=== PATIENT | male | born 1970 | race Caucasian/White ===

== ENCOUNTER → 2018-05-01 08:20 | Outpatient (CLI) | payer BC, SELFPAY ==
[2018-05-01 10:00] LABS: Alanine Aminotransferase 112 U/L (12-78); Albumin Level 4.2 gm/dL (3.4-5.0); Albumin/Globulin Ratio 1.2 (1.1-1.8); Alkaline Phosphatase 107 U/L (46-116); Anion Gap 16.7 mEq/L (5-15); Aspartate Amino Transferase 43 U/L (15-37); Bilirubin,Total 0.6 mg/dL (0.2-1.0); Blood Urea Nitrogen 23 mg/dL (7-18); Calcium 9.6 mg/dL (8.5-10.1); Carbon Dioxide 25 mmol/L (21.0-32.0); Chloride 103 mmol/L (98-107); Chol/HDL Ratio 7.1 (1-3.5); Cholesterol 263 mg/dL (140-200); Creatinine,Serum 1.12 mg/dL (0.70-1.30); Estimated Glomerular Filt Rate 71 ml/min (>60); GFR (African American) 85 ML/MIN (>60); Globulin 3.4 gm/dl (1.3-3.2); Glucose 138 mg/dL (74-106); HDL Cholesterol 37 mg/dL (27-67); LDL Cholesterol 202 mg/dL (0-130); Potassium 4.7 mmoL/L (3.5-5.1); Sodium 140 mmol/L (136-145); Total Protein,Serum 7.6 gm/dL (6.4-8.2); Triglycerides 118 mg/dL (30-200); VLDL Cholesterol 24 mg/dL (0-40)
[2018-05-01 10:25] LABS: Hemoglobin A1C 5.8 % (0.0-7.0)
== END ==
PROVIDERS: Visit Provider Physician Assistant
DX: R63.1 Polydipsia (principal); Z13.220 Encounter for screening for lipoid disorders
CPT/HCPCS: 36415; 80053; 80061; 83036

== ENCOUNTER → 2018-05-26 07:52 | Outpatient (CLI) | payer BC, SELFPAY ==
--- NOTE | 2018-05-26 07:57 | US_ITS ---
US abdomen limited History:Elevated liver enzymes Ordering Physician:Renee Holman MD Patient Age: 47 years Comparison:None Findings: Pancreas:Poorly demonstrated due to overlying bowel gas. Liver:Generalized increased echogenicity with poor through transmission of sound consistent Hill liver. No focal lesions demonstrated. There is appropriate direction of blood flow within the portal vein Right Kidney:Unremarkable. Normal size and echogenicity. No hydronephrosis Gallbladder:There is mild amount sludge noted. No gallstones, gallbladder wall thickening, pericholecystic fluid, or biliary dilatation. Common bile duct is 4 mm. Impression: 1. Small amount of gallbladder sludge. 2. Fatty liver. 3. Otherwise negative
== END ==
PROVIDERS: PCP Family Medicine; Visit Provider Family Medicine
DX: R79.89 Other specified abnormal findings of blood chemistry (principal)
CPT/HCPCS: 76705

== ENCOUNTER → 2018-11-05 07:19 | Outpatient (CLI) | payer BC, SELFPAY ==
[2018-11-05 10:14] LABS: Alanine Aminotransferase 75 U/L (12-78); Albumin Level 3.9 gm/dL (3.4-5.0); Albumin/Globulin Ratio 1.3 (1.1-1.8); Alkaline Phosphatase 98 U/L (46-116); Anion Gap 15.4 mEq/L (5-15); Aspartate Amino Transferase 32 U/L (15-37); Bilirubin,Total 0.5 mg/dL (0.2-1.0); Blood Urea Nitrogen 18 mg/dL (7-18); Calcium 8.9 mg/dL (8.5-10.1); Carbon Dioxide 24 mmol/L (21.0-32.0); Chloride 105 mmol/L (98-107); Chol/HDL Ratio 5.5 (1-3.5); Cholesterol 175 mg/dL (140-200); Creatinine,Serum 1.17 mg/dL (0.70-1.30); Estimated Glomerular Filt Rate 67 ml/min (>60); GFR (African American) 81 ML/MIN (>60); Glucose 112 mg/dL (74-106); HDL Cholesterol 32 mg/dL (27-67); LDL Cholesterol 108 mg/dL (0-130); Potassium 4.4 mmoL/L (3.5-5.1); Sodium 140 mmol/L (136-145); Total Protein,Serum 6.9 gm/dL (6.4-8.2); Triglycerides 177 mg/dL (30-200); VLDL Cholesterol 35 mg/dL (0-40)
== END ==
PROVIDERS: Visit Provider Physician Assistant
DX: E78.2 Mixed hyperlipidemia (principal)
CPT/HCPCS: 36415; 80053; 80061

== ENCOUNTER → 2019-04-13 10:06 | Outpatient (CLI) | payer BC, SELFPAY ==
--- NOTE | 2019-08-21 16:32 | PC.NURSE ---
1630 dr. lester notified of NEGATIVE COVID-19 TEST RESULTS 1633 PT NOTIFIED OF NEGATIVE COVID-19 TEST RESULTS
== END ==
PROVIDERS: Visit Provider Urology
DX: Z12.5 Encounter for screening for malignant neoplasm of prostate (principal)
CPT/HCPCS: G0103

== ENCOUNTER → 2019-08-20 10:26 | Outpatient (CLI) | payer BC, SELFPAY ==
[2019-08-21 16:45] LABS: Covid-19 Nasal PCR Sendout Lex NOT DETECTED
== END ==
PROVIDERS: Visit Provider Family Medicine
DX: Z03.818 Encounter for observation for suspected exposure to other biological agents ruled out (principal)
CPT/HCPCS: U0003

== ENCOUNTER → 2020-12-12 16:41 | Outpatient (CLI) | payer BC, SELFPAY | PROVIDERS: PCP Physician Assistant; Visit Provider Physician Assistant | DX: G47.33 Obstructive sleep apnea (adult) (pediatric) (principal); R40.0 Somnolence; R06.83 Snoring; G47.00 Insomnia, unspecified; E66.9 Obesity, unspecified; Z68.34 Body mass index [BMI] 34.0-34.9, adult | CPT/HCPCS: G0399 ==

== ENCOUNTER → 2021-05-14 13:00 | Outpatient (CLI) | payer BC, SELFPAY ==
[2021-05-14 14:05] LABS: Basophils # 0.1 K/mm3 (0-0.2); Basophils % 0.8 % (0.1-2.0); Eosinophils # 0.6 K/mm3 (0.0-0.4); Hematocrit 46.8 % (42.0-52.0); Hemoglobin 15.1 g/dL (14.1-18.0); Lymphocytes # 2.7 K/mm3 (0.7-4.5); Lymphocytes % 18.8 % (10-50); Mean Corpuscular HGB Conc 32.4 g/dL (31.8-35.4); Mean Corpuscular Hemoglobin 28.8 pg (27.0-31.2); Mean Corpuscular Volume 88.9 fl (80-94); Mean Platelet Volume 7.9 fl (7.4-10.4); Monocytes % 7.1 % (1.7-9.3); Neutrophils # 9.9 K/mm3 (1.8-7.8); Neutrophils % 69.2 % (37.0-80.0); Platelet Count 473 K/mm3 (142-424); Red Blood Count 5.26 M/mm3 (4.60-6.20); Red Cell Distribution Width 13.2 % (11.5-17.5); White Blood Count 14.4 K/mm3 (4.8-10.8)
== END ==
PROVIDERS: PCP Family Medicine; Visit Provider Family Medicine
DX: U07.1 COVID-19 (principal)
CPT/HCPCS: 36415; 85025; 87275; 87276; C9803; U0003; U0005

== ENCOUNTER → 2021-08-12 14:50 | Outpatient (CLI) | payer BC, SELFPAY ==
[2021-08-12 16:47] LABS: Prostate Specific Ag Screen 1.1 ng/ml (0.0-4.0)
== END ==
PROVIDERS: Visit Provider Urology
DX: Z12.5 Encounter for screening for malignant neoplasm of prostate (principal)
CPT/HCPCS: 36415; G0103

== ENCOUNTER → 2023-02-17 10:23 | Outpatient (POV) | payer BC, SELFPAY | PROVIDERS: Visit Provider Dermatology | DX: Z00.00 Encounter for general adult medical examination without abnormal findings (principal) ==

== ENCOUNTER 2023-06-30 09:46 | Outpatient (POV) | payer BC, SELFPAY | END 2023-06-30 23:59 | disposition home or self-care (01) | LOC: SC 09:47 | PROVIDERS: PCP Family Medicine; Visit Provider Dermatology | DX: Z00.00 Encounter for general adult medical examination without abnormal findings (principal) ==

== ENCOUNTER 2023-12-07 07:16 | Outpatient (CLI) | payer BC, SELFPAY ==
[2023-12-07 08:27] LABS: Albumin Level 3.9 g/dl (3.5-5.0); Chloride 109 mmol/L (98-107); Potassium 3.9 mmoL/L (3.5-5.1); Sodium 140 mmol/L (136-145)
[2023-12-07 08:30] LABS: Alanine Aminotransferase 122 U/L (12-78); Albumin/Globulin Ratio 1.6 (1.1-1.8); Alkaline Phosphatase 99 U/L (38-126); Anion Gap 8.9 mEq/L (5-15); Aspartate Amino Transferase 66 U/L (17-59); Bilirubin,Total 0.5 mg/dl (0.2-1.3); Blood Urea Nitrogen 18 mg/dl (9-20); Carbon Dioxide 26 mmol/L (22.0-30.0); Chol/HDL Ratio 7.7 (1-3.5); Cholesterol 245 mg/dl (140-200); Estimated Glomerular Filt Rate 70 ml/min (>60); GFR (African American) 85 ML/MIN (>60); Globulin 2.5 g/dL (1.3-3.2); Glucose 122 mg/dl (74-100); HDL Cholesterol 32 mg/dl (40-60); Total Protein,Serum 6.4 g/dl (6.3-8.2); Triglycerides 168 mg/dl (30-150); VLDL Cholesterol 34 mg/dL (0-40)
[2023-12-07 08:41] LABS: Direct LDL Cholesterol 177.05 mg/dL (100-129)
[2023-12-07 09:01] LABS: Thyroid Stimulating Hormone 2.65 uIU/mL (0.465-4.68)
[2023-12-07 10:33] LABS: Hemoglobin A1C 6.3 % (4.0-6.0)
[2023-12-07 13:31] LABS: Prostate Specific Ag Screen 1.6 ng/ml (0.0-4.0)
== END 2023-12-07 23:59 | disposition home or self-care (01) ==
LOC: LAB 07:17
PROVIDERS: PCP Family Medicine; Visit Provider Family Medicine
DX: E78.2 Mixed hyperlipidemia (principal); I10 Essential (primary) hypertension; R73.9 Hyperglycemia, unspecified; F98.8 Other specified behavioral and emotional disorders with onset usually occurring in childhood and adolescence; F41.8 Other specified anxiety disorders; Z12.5 Encounter for screening for malignant neoplasm of prostate
CPT/HCPCS: 36415; 80053; 80061; 83036; 84443; G0103

== ENCOUNTER 2024-07-04 07:29 | Outpatient (CLI) | payer BC, SELFPAY ==
[2024-07-04 08:39] LABS: Alanine Aminotransferase 87 U/L (12-78); Albumin/Globulin Ratio 1.7 (1.1-1.8); Alkaline Phosphatase 89 U/L (38-126); Anion Gap 8.5 mEq/L (5-15); Aspartate Amino Transferase 52 U/L (17-59); Bilirubin,Total 0.5 mg/dl (0.2-1.3); Blood Urea Nitrogen 20 mg/dl (9-20); Carbon Dioxide 26 mmol/L (22.0-30.0); Chloride 108 mmol/L (98-107); Chol/HDL Ratio 6.2 (1-3.5); Cholesterol 206 mg/dl (140-200); Estimated Glomerular Filt Rate 70 ml/min (>60); GFR (African American) 85 ML/MIN (>60); Globulin 2.3 g/dL (1.3-3.2); Glucose 128 mg/dl (74-100); HDL Cholesterol 33 mg/dl (40-60); Potassium 4.5 mmoL/L (3.5-5.1); Sodium 138 mmol/L (136-145); Total Protein,Serum 6.3 g/dl (6.3-8.2); Triglycerides 115 mg/dl (30-150); VLDL Cholesterol 23 mg/dL (0-40)
[2024-07-04 08:50] LABS: Direct LDL Cholesterol 148.78 mg/dL (100-129)
[2024-07-04 09:55] LABS: Hemoglobin A1C 6.1 % (4.0-6.0)
== END 2024-07-04 23:59 | disposition home or self-care (01) ==
LOC: LAB 07:30
PROVIDERS: PCP Family Medicine; Visit Provider Family Medicine
DX: I10 Essential (primary) hypertension (principal); E78.5 Hyperlipidemia, unspecified; R73.03 Prediabetes
CPT/HCPCS: 36415; 80053; 80061; 83036

== ENCOUNTER 2025-01-23 08:30 | Outpatient (CLI) | payer BC, SELFPAY ==
--- OUTSIDE RECORDS SUMMARY | 2023-12-03 10:40 | XMS_ITS ---
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 Name Role Phone Antoinette Baptiste Primary Care Provider Allergies No Known Allergies REASON FOR VISIT discuss medication Medications Medication SIG (Take, Route, Frequency, Duration) Notes Start Date End Date Status guanFACINE HCl ER 2 MG 1 tab(s) orally o nce a day (in the morning); Duration: 30 Active hydrOXYzine HCl 25 MG 1/2 - 1 tab(s) ora lly qhs, prn; Duration: 30 Not-Takin g Rosuvastatin Calcium 5 MG 1 tab(s) orall y once a day (at bedtime); Duration: 30 day(s) 05/27/2018 Not-Taking Colchicine 0.6 MG 2 tables once and th en 1 tab 1 hour later and then 1 tab daily orally once a day 05/23/2022 Not-Taking Venlafaxine HCl ER 150 MG Take 1 capsule by mouth once daily; Duration: 90 Active buPROPion HCl ER (XL) 150 MG TAKE 1 TABLET BY MOUTH EVERY 24 HOURS; Duration: 90 Active Triamcinolone Acetonide 0.1 % 1 sarah applied topically 3 times a day 08/27/2022 Active Problems Problem Type SNOMED Code ICD Code Onset Dates Problem Status W/U Status Risk Notes Problem Amnesia (58277911) Memory changes (R41.3) Active confirmed Vital Signs Weight 254.6 lbs 12/03/2023 Blood pressure systolic 150 mm Hg 12/03/19 24 Blood pressure diastolic 100 mm Hg 024 Heart Rate 84 /min 12/03/2023 Height 71 in 12/03/2023 BMI 35.51 kg/m2 12/03/2023 Encounters Encounter Location Date Provider Diagnosis [facility] [address] [facility] [address] [facility] [address] [place] [id number] 12/03/2023 Antoinette Baptiste Hyperglycemia R73.9 ; Memory changes R41.3 ; Elevated blood pressure reading without diagnosis of hypertension R03.0 and Prostate cancer screening Z12.5 Assessments Encounter Date Diagnosis (ICD Code) Assessment Notes Treatment Notes Treatment Clinical Notes Section Notes 12/03/2023 Hyperglycemia (ICD-10 - R73.9) 12/03/2023 Memory changes (ICD-10 - R41.3) Check labs and follow-up in 2 weeks 12/03/2023 Elevated blood pressure reading without diagnosis of hypertension (ICD-10 - R03.0) Monitor and record blood pressure readings twice a day and bring diary to follow-up visit 12/03/2023 Prostate cancer screening (ICD-10 - Z12.5) Plan Of Treatment Treatment Notes Assessment Notes Memory changes Check labs and follo w-up in 2 weeks Elevated blood pressure read ing without diagnosis of hypertension Monitor and record blood pressure readings twice a day and bring diary to follow-up visit Next Appt Details Follow Up: 2 Weeks, Reason: Provider Name:Antoinette Nguyen, 01/24/2025 09:30:00 AM, [address] [facility] 36 [facility], [address], [place], [id number], Progress Notes * LORIE YUNDOB:1970 ([age] yo M)Acc No.[id number]:12/03/2023 Progress Notes Patient: LORIE LEE Provider: Antoinette Baptiste M.D. :1970 A ge:53 Y S ex:Male Date:12/03/2023 Address:[address] [place] [address] [place], [id number] Subjective: * Chief Complaints: * 1 . Discuss medication. * HPI: N eurology: Lorie presents with concerns about his memory that has been noticeable for about a year. It first became apparent to his and he attributed it to his ADD and inattentiveness but more recently he has become aware of being more forgetful. He has had no recent changes in medication. He denies increased stress with work. Sleeps well at night. C ardiology: Noted with elevated blood pressure today. He is adopted and unaware of any family history. * ROS: D ERMATOLOGY: no R alhaji. n o H rosario. G ASTROENTEROLOGY: no N ausea. n o V omiting. U ROLOGY: no D ifficulty urinating. n o B lood in urine. * Medical History: A llergic Rhinitis. * Surgical History: H ernia Repair , Vasectomy , Mole Removal- Dr. Strickland 11/22/2019. * Hospitalization/Major Diagno stic Procedure: Eric thomason- [facility] ER 05/2016. * Family History: F ather: unknown. M other: unknown. P aternal Grand Father: . P aternal Grand Mother: . M aternal Grand Father: . M aternal Grand Mother: .?1 son(s) . . patient is adopted. Does not know any family history. * Social History: C URRENT TOBACCO USE: No . C affeine: yes, frequency:daily. Home smoke detector use: yes. Marital Status: . Past smoking status: no. Alcohol: Type: , Frequency: ,Years: , Determination:occasionally. * Medications: T aking guanFACINE HCl ER 2 MG Tablet Extended Release 24 Hour 1 tab(s) orally once a day (in the morning) , Taking Triamcinolone Acetonide 0.1 % Cream 1 sarah applied topically 3 times a day , Taking Venlafaxine HCl ER 150 MG Capsule Extended Release 24 Hour Take 1 capsule by mouth once daily , Taking buPROPion HCl ER (XL) 150 MG Tablet Extended Release 24 Hour TAKE 1 TABLET BY MOUTH EVERY 24 HOURS , Not- Taking Rosuvastatin Calcium 5 MG Tablet 1 tab(s) orally once a day (at bedtime) , Not- Taking hydrOXYzine HCl 25 MG Tablet 1/2 - 1 tab(s) orally qhs, prn , Not-Taking Colchicine 0.6 MG Tablet 2 tables once and then 1 tab 1 hour later and then 1 tab daily orally once a day , Discontinued Medrol 4 MG Tablet Therapy Pack as directed orally , Discontinued Zithromax Z-Sundeep 250 MG Tablet as directed Orally once daily , Discontinued Zithromax Z-Sundeep 250 MG Tablet 2 pills first day then one daily for 4 days orally as directed , Medication List reviewed and reconciled with the patient * Allergies: N .K.D.A. Objective: * Vitals: W t:254.6, Temp:98.6, BP:150/100, HR:84, Nurse:GIOVANI, Ht: 71, BMI:35.51. * Examination: G eneral Examination: General Appearance: N AD. H EENT: u nremarkable.?Oral cavity: n o lesions, mucosa moist and WNL, no erythema. N eva: s upple, no lymphadenopathy. No thyromegaly or bruits. H eart: R SR. L ungs: c lear to auscultation. E xtremities: n o leg edema. Assessment: * Assessment: 1. M prema changes - R41.3 (Primary) 2 . H yperglycemia - R73.9 ?3. E levated blood pressure reading without diagnosis of hypertension - R03.0 ?4. P rostate cancer screening - Z12.5 Plan: * Treatment: 2. E levated blood pressure reading without diagnosis of hypertension Notes: Monitor and record blood pressure readings twice a day and bring diary to follow-up visit? * Follow Up: 2 Weeks * Images: Billing Information: * Visit Code: 29290 Office Visit, Est Pt., Level 3. * Procedure Codes: * Electronic signature of Antoinette Baptiste MD on 01/23/2025 at 08:56 AM EDT Sign off status: Pending * Provider: Antoinette Baptiste M.D. Date: 12/03/2023 Generated for Marbellai sj/Aisha/eTransmitting on: 01/23/2025 08:56 AM EDT History and Physical Notes * Examination Category Sub-Category Detail Notes Category Not es General Examination HEENT: unremarkable Heart: RSR Lungs: clear to auscultatio n Extremities: no leg edema General Appearance: NAD Neck: supple, no lymphaden opathy. No thyromegaly or bruits Oral cavity: no lesions, mucosa m oist and WNL, no erythema
--- OUTSIDE RECORDS SUMMARY | 2023-12-17 06:15 | XMS_ITS ---
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 Name Role Phone Antoinette Baptiste Primary Care Provider Allergies No Known Allergies REASON FOR VISIT 2 weeks Medications Medication SIG (Take, Route, Frequency, Duration) Notes Start Date End Date Status Triamcinolone Acetonide 0.1 % 1 sarah applied topically 3 times a day 08/27/2022 Active Venlafaxine HCl ER 150 MG Take 1 capsule by mouth once daily; Duration: 90 Active Lisinopril 10 MG 1 tablet Orally Once a day; Duration: 30 day(s) 12/17/2023 Active buPROPion HCl ER (XL) 150 MG TAKE 1 TABLET BY MOUTH EVERY 24 HOURS; Duration: 90 Active Rosuvastatin Calcium 5 MG 1 tab(s) orall y once a day (at bedtime); Duration: 30 day(s) 05/27/2018 Not-Taking guanFACINE HCl ER 2 MG 1 tab(s) orally o nce a day (in the morning); Duration: 30 Active hydrOXYzine HCl 25 MG 1/2 - 1 tab(s) ora lly qhs, prn; Duration: 30 Not-Takin g Colchicine 0.6 MG 2 tables once and th en 1 tab 1 hour later and then 1 tab daily orally once a day 05/23/2022 Not-Taking Problems Problem Type SNOMED Code ICD Code Onset Dates Problem Status W/U Status Risk Notes Problem HBP - High blood pressure (83129668) HBP (high blood pressure) (I10) Active confirmed Problem Dyslexia (10589708) Dyslexia (R48.0) Active confirmed Problem Prediabetes (032546420) Prediabetes (R73.03) Active confirmed Problem Obese class II (165569549110240 ) BMI 35.0-35.9,adult (Z68.35) Active confirmed Problem Dyslipidemia (371928795) Dyslipidemia (E78.5) Active confirmed Vital Signs Weight 256.6 lbs 12/17/2023 Blood pressure systolic 158 mm Hg 12/17/19 24 Blood pressure diastolic 110 mm Hg 024 Heart Rate 94 /min 12/17/2023 Height 71 in 12/17/2023 BMI 35.78 kg/m2 12/17/2023 Encounters Encounter Location Date Provider Diagnosis [facility] [address] [place], [place] [id number] 12/17/2023 Antoinette Baptiste HBP (high blood pressure) I10 ; Dyslipidemia E78.5 ; Prediabetes R73.03 and BMI 35.0-35.9,adult Z68.35 Assessments Encounter Date Diagnosis (ICD Code) Assessment Notes Treatment Notes Treatment Clinical Notes Section Notes 12/17/2023 HBP (high blood pressure) (ICD-10 - I10) Diagnosis of hypertension is established and he will be started on medication. Recommended to limit salt and caffeine in diet 12/17/2023 Dyslipidemia (ICD-10 - E78.5) He wishes to try lifestyle modification with diet, exercise, and weight loss prior to starting medication. 12/17/2023 Prediabetes (ICD-10 - R73.03) 12/17/2023 BMI 35.0-35.9,adult (ICD-10 - Z68.35) Plan Of Treatment Medication Medication Name Sig Start Date Stop Date Notes Lisinopril 10 MG 1 tablet Orally Once a day; Duration: 30 day(s) 12/17/2023 Treatment Notes Assessment Notes HBP (high blood pressure) Diagnosis of h ypertension is established and he will be started on medication. Recommended to limit salt and caffeine in diet Dyslipidemia He wishes to try lif estyle modification with diet, exercise, and weight loss prior to starting medication. Next Appt Details Follow Up: By phone in Thu to report progress and office visit in 3-4 Months for repeat labs, Reason: Provider Name:Antoinette Nguyen, 01/24/2025 09:30:00 AM, [address], [place], [phone], Progress Notes * PAPA YUNDOB:1970 ([age] yo M)Acc No.[id number]:12/17/2023 Progress Notes Patient: PAPA LEE Provider: Antoinette Baptiste M.D. :1970 A ge:53 Y S ex:Male Date:12/17/2023 Address:[address] [place] [address] , [place], [id number] Subjective: * Chief Complaints: * 1 . 2 weeks. * HPI: C ardiology: Papa returns for follow-up on his blood pressure and recent blood work. He has been monitoring his blood pressure at home since his last office visit and has had consistently elevated readings averaging 150/100. * ROS: D ERMATOLOGY: no R alhaji. n o H rosario. G ASTROENTEROLOGY: no N ausea. n o V omiting. n o D iarrhea.? U ROLOGY: no D ifficulty urinating. n o B lood in urine. * Medical History: A llergic Rhinitis, HBP, HLP, Prediabetes. * Surgical History: H ernia Repair , Vasectomy , Mole Removal- Dr. Strickland 11/22/2019. * Hospitalization/Major Diagno stic Procedure: Eric thomason- [facility] ER 05/2016. * Family History: F ather: [...] tab daily orally once a day , Medication List reviewed and reconciled with the patient * Allergies: N .K.D.A. Objective: * Vitals: W t:256.6, Temp:97.7, BP:158/110, HR:94, Nurse:GIOVANI, Ht: 71, BMI:35.78. * Physical Examination: L ABS: See labs r eviewed with patient. Lipids are not at goal. A1c elevated at 6.3%.. Assessment: * Assessment: 1. H BP (high blood pressure) - I10 (Primary) 2 . D yslipidemia - E78.5? 3. P rediabetes - R73.03 4 . B CO 35.0-35.9,adult - Z68.35? Plan: * Treatment: 2. D yslipidemia Notes: He wishes to try lifestyle modification with diet, exercise, and weight loss prior to starting medication. * Follow Up: B y phone in 1 month to report progress and office visit in 3-4 Months for repeat labs * Images: Billing Information: * Visit Code: 10007 Office Visit, Est Pt., Level 3. * Procedure Codes: * Electronic signature of Antoinette Baptiste MD on 01/23/2025 at 08:56 AM EDT Sign off status: Pending * Provider: Antoinette Baptiste M.D. Date: 12/17/2023 Generated for Zachary gustafson/Aisha/Dakshaitting on: 01/23/2025 08:56 AM EDT History and Physical Notes * Physical Examination Category Sub-Category Detail Notes Section Note s LABS See labs reviewed with rashi myers. Lipids are not at goal. A1c elevated at 6.3%.
--- OUTSIDE RECORDS SUMMARY | 2024-04-07 05:30 | XMS_ITS ---
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 Name Role Phone Antoinette Baptiste Primary Care Provider [phone] Allergies No Known Allergies Results Component Value Reference Range Notes Lipid Profile Reviewed date:07/04/2024 09:01:22 AM Interpretation: Performing Lab: Notes/Report: CMP Reviewed date:07/04/2024 09:01:34 AM Interpretation: Performing Lab: Notes/Report: REASON FOR VISIT 3 months, Needs colon cancer screening, shingles, & flu vaccines Medications Medication SIG (Take, Route, Frequency, Duration) Notes Start Date End Date Status Lisinopril 10 MG 1 tablet Orally Once a day; Duration: 30 day(s) Active buPROPion HCl ER (XL) 150 MG TAKE 1 TABLET BY MOUTH EVERY 24 HOURS; Duration: 90 days Active Venlafaxine HCl ER 150 MG Take 1 capsule by mouth once daily; Duration: 90 days Active guanFACINE HCl ER 2 MG 1 tab(s) orally o nce a day (in the morning); Duration: 30 Active Lisinopril 10 MG 1 tablet Orally Once a day Active Vital Signs Weight 254 lbs 04/07/2024 Blood pressure systolic 140 mm Hg 04/07/20 24 Blood pressure diastolic 92 mm Hg 024 Heart Rate 85 /min 04/07/2024 Height 71 in 04/07/2024 BMI 35.42 kg/m2 04/07/2024 Encounters Encounter Location Date Provider Diagnosis [facility] [address] [facility] [address] [place] [id number] 04/07/2024 Antoinette Baptiste HBP (high blood pressure) I10 ; Dyslipidemia E78.5 ; Prediabetes R73.03 ; BMI 35.0-35.9,adult Z68.35 and Screening for colon cancer Z12.11 Assessments Encounter Date Diagnosis (ICD Code) Assessment Notes Treatment Notes Treatment Clinical Notes Section Notes 04/07/2024 HBP (high blood pressure) (ICD-10 - I10) 04/07/2024 Dyslipidemia (ICD-10 - E78.5) He is provided a requisition to repeat his lab studies. Reinforced diet and weight loss. 04/07/2024 Prediabetes (ICD-10 - R73.03) Check A1c 04/07/2024 BMI 35.0-35.9,adult (ICD-10 - Z68.35) 04/07/2024 Screening for colon cancer (ICD-10 - Z12.11) Plan Of Treatment Medication Medication Name Sig Start Date Stop Date Notes Lisinopril 10 MG 1 tablet Orally Once a day Treatment Notes Assessment Notes Dyslipidemia He is provided a req uisition to repeat his lab studies. Reinforced diet and weight loss. Prediabetes Check A1c Pending Test Test Name Order Date Glycohemoglobin (HbA1C) 04/07/2024 colonoscopy 04/07/2024 Next Appt Details Follow Up: 3 Months, Reason: Provider Name:Antoinette Nguyen, 01/24/2025 09:30:00 AM, [address] [facility], [address], [place], [id number], Progress Notes * LORIE YUNDOB:1970 ([age] yo M)Acc No.[id number]:04/07/2024 Progress Notes Patient: LORIE LEE Provider: Antoinette Baptiste M.D. :1970 A ge:53 Y S ex:Male Date:04/07/2024 Address:[address] [place] [address] , [id number] Subjective: * Chief Complaints: * 1 . 3 months. 2. Needs colon cancer screening, shingles, & flu vaccines. * HPI: H PI: He comes in today for follow-up on his hypertension, hyperlipidemia, and impaired fasting glucose. He has been compliant with medication and reports no significant issues with headaches. Blood pressure checks at home have been consistently normal. He has not been successful with weight loss. He is not fasting today. G astroenterology: He has never had screening colonoscopy. Family history is unknown. He denies changes in bowel habits. * ROS: D ERMATOLOGY: no R alhaji. [...] * Hospitalization/Major Diagno stic Procedure: Eric thomason- [facility] ER 05/2016. * Family History: F ather: [...] a day (in the morning) , Taking buPROPion HCl ER (XL) 150 MG Tablet Extended Release 24 Hour TAKE 1 TABLET BY MOUTH EVERY 24 HOURS , Taking Venlafaxine HCl ER 150 MG Capsule Extended Release 24 Hour Take 1 capsule by mouth once daily , Taking Lisinopril 10 MG Tablet 1 tablet Orally Once a day , Discontinued Triamcinolone Acetonide 0.1 % Cream 1 sarah applied topically 3 times a day , Discontinued Ciprofloxacin-dexAMETHasone 0.3-0.1 % Suspension 4 drops into affected ear Otic Twice a day , Medication List reviewed and reconciled with the patient * Allergies: N .K.D.A. Objective: * Vitals: W t:254, Temp:97.5, BP:140/92, HR:85, Nurse:GIOVANI, Ht: 71, BMI:35.42. * Examination: G eneral Examination: General Appearance: N AD. H EENT: u nremarkable.?Oral cavity: n o lesions, mucosa moist and WNL, no erythema. N eva: s upple, no lymphadenopathy. C hest: n ormal shape and expansion. H eart: R SR. L ungs: c lear to auscultation. N eurologic Exam: I ntact, gait normal. S kin: n ormal, no rash.?Peripheral pulses: n ormal (2+) bilaterally. E xtremities: n o leg edema. ? Assessment: * Assessment: 1. H BP (high blood pressure) - I10 (Primary) 2 . D yslipidemia - E78.5? 3. P rediabetes - R73.03 4 . B AK 35.0-35.9,adult - Z68.35? 5. S creening for colon cancer - Z12.11 Plan: * Treatment: 2. D yslipidemia Notes: He is provided a requisition to repeat his lab studies. Reinforced diet and weight loss.? 3. P rediabetes Notes: Check A1c 4. S creening for colon cancer I maging: colonoscopy * Labs: * L ab: Glycohemoglobin (HbA1C) L ab: CMP (Collection Date & Time - 07/04/2024) ?Lab: Lipid Profile (Collection Date & Time - 07/04/2024)* see duplicate order * Follow Up: 3 Months * Images: Billing Information: * Visit Code: 10770 Office Visit, Est Pt., Level 4. * Procedure Codes: * Electronic signature of Antoinette Baptiste MD on 01/23/2025 at 08:55 AM EDT Sign off status: Pending * Provider: Antoinette Baptiste M.D. Date: 06/08/2023 Generated for Zachary gustafson/Aisha/Mark on: 0 01/23/2025 08:55 AM EDT History and Physical Notes * Examination Category Sub-Category Detail Notes Category Not es General Examination HEENT: unremarkable Heart: RSR Lungs: clear to auscultatio n Extremities: no leg edema General Appearance: NAD Skin: normal, no rash Neurologic Exam: Intact, gait normal Neck: supple, no lymphaden opathy Oral cavity: no lesions, mucosa m oist and WNL, no erythema Peripheral pulses: normal (2+) bilatera lly Chest: normal shape and exp ansion
--- OUTSIDE RECORDS SUMMARY | 2024-07-07 05:30 | XMS_ITS ---
Author Organization [facility] Address 1210 [facility] [address] [place] [id number] Care Team Providers Care Alcohol Law Enforcement Agent Name Role Phone Antoinette Baptiste Primary Care Provider [phone] Allergies No Known Allergies REASON FOR VISIT 3 months, Needs colon cancer screening & shingles vaccine Medications Medication SIG (Take, Route, Frequency, Duration) Notes Start Date End Date Status buPROPion HCl ER (XL) 150 MG TAKE 1 TABLET BY MOUTH EVERY 24 HOURS; Duration: 90 days Active Venlafaxine HCl ER 150 MG Take 1 capsule by mouth once daily; Duration: 90 days Active Lisinopril 10 MG 1 tablet Orally Once a day Active guanFACINE HCl ER 2 MG 1 tab(s) orally o nce a day (in the morning); Duration: 30 Active Lisinopril 10 MG 1 tablet Orally Once a day; Duration: 30 day(s) Active Vital Signs Weight 250.8 lbs 07/07/2024 Blood pressure systolic 140 mm Hg 07/08/19 25 Blood pressure diastolic 90 mm Hg 025 Heart Rate 64 /min 07/07/2024 Height 71 in 07/07/2024 BMI 34.98 kg/m2 07/07/2024 Encounters Encounter Location Date Provider Diagnosis [place] [address] [place] [address] [place] [id number] 07/07/2024 Antoinette Baptiste HBP (high blood pressure) I10 ; Dyslipidemia E78.5 ; Prediabetes R73.03 and BMI 35.0-35.9,adult Z68.35 Assessments Encounter Date Diagnosis (ICD Code) Assessment Notes Treatment Notes Treatment Clinical Notes Section Notes 07/07/2024 HBP (high blood pressure) (ICD-10 - I10) 07/07/2024 Dyslipidemia (ICD-10 - E78.5) He is provided a requisition to repeat his lab studies prior to next OV. Reinforced diet and weight loss. 07/07/2024 Prediabetes (ICD-10 - R73.03) 07/07/2024 BMI 35.0-35.9,adult (ICD-10 - Z68.35) Plan Of Treatment Medication Medication Name Sig Start Date Stop Date Notes Lisinopril 10 MG 1 tablet Orally Once a day Treatment Notes Assessment Notes Dyslipidemia He is provided a req uisition to repeat his lab studies prior to next OV. Reinforced diet and weight loss. Next Appt Details Follow Up: 6 Months, Reason: Provider Name:Antoinette Nguyen, 01/24/2025 09:30:00 AM, [address], [place], [place], [id number], Progress Notes * PAPA YUNDOB:1970 ([age] yo M)Acc No.[id number]:07/07/2024 Progress Notes Patient: PAPA LEE Provider: Antoinette Baptiste M.D. :1970 A ge:53 Y S ex:Male Date:07/07/2024 Address:[address] [place] [address] , [place], [id number] Subjective: * Chief Complaints: * 1 . 3 months. 2. Needs colon cancer screening & shingles vaccine. * HPI: C ardiology: Papa returns today for follow-up on his hypertension, hyperglycemia, and dyslipidemia. He has been compliant with medication and more compliant with diet and exercise. He has lost 5 pounds of weight. Generally feels well. No problems with headaches. Denies : Chest Pain. D enies : Short of Breath. D enies : Leg Edema. He has had recent blood work for review. * ROS: D ERMATOLOGY: no R alhaji. [...] * Hospitalization/Major Diagno stic Procedure: Eric thomason- [facility] ER 05/2016. * Family History: F ather: [...] 1 tablet Orally Once a day , Medication List reviewed and reconciled with the patient * Allergies: N .K.D.A. Objective: * Vitals: W t:250.8, Temp:98.0, BP:140/90, HR:64, O2 Sat:96% on RA, Nurse:merlyn, Ht: 71, BMI:34.98. * Examination: G eneral Examination: General Appearance: N AD. N eva: s upple, no lymphadenopathy. H eart: R SR. L ungs: c lear to auscultation. E xtremities: n o leg edema. * Physical Examination: L ABS: See labs antoinetet mendez with patient. Lipd and A1c improving with life style changes. Assessment: * Assessment: 1. H BP (high blood pressure) - I10 (Primary) 2 . D yslipidemia - E78.5? 3. P rediabetes - R73.03 4 . B PR 35.0-35.9,adult - Z68.35? Plan: * Treatment: 2. D yslipidemia Notes: He is provided a requisition to repeat his lab studies prior to next OV. Reinforced diet and weight loss. * Procedure Codes: 3 077F SYST BP = 140 MM HG6 IT, 3080F DIAST BP = 90 MM HG * Follow Up: 6 Months * Images: Billing Information: * Visit Code: 01935 Office Visit, Est Pt., Level 3. * Procedure Codes: 3077F SYST BP = 140 MM HG6 IT. 3080F DIAST BP = 90 MM HG. * Electronic signature of Antoinette Baptiste MD on 01/23/2025 at 08:56 AM EDT Sign off status: Pending * Provider: Antoinette Baptiste M.D. Date: 0 07/07/2024 Generated for Zachary gustafson/Aisha/Dakshaitting on: 0 01/23/2025 08:56 AM EDT History and Physical Notes * HPI (History of Present Illness) Category Sub-Category Detail Notes Category Not es Cardiology Short of Breath He has had r ecent blood work for review. Chest Pain Leg Edema Physical Examination Category Sub-Category Detail Notes Section Note s LABS See labs reviewed with rashi myers. Lipd and A1c improving with life style changes Examination Category Sub-Category Detail Notes Category Not es General Examination Heart: RSR Lungs: clear to auscultatio n Extremities: no leg edema General Appearance: NAD Neck: supple, no lymphaden opathy
--- OUTSIDE RECORDS SUMMARY | 2025-01-23 08:55 | XMS_ITS | Clinical Summary ---
Author Organization [facility] 95 Care Team Providers Care Ball Sorter Name Role Phone Ale Garcia MD Primary Care Provider Allergies No known active allergies Medications diphenhydrAMINE (BENADRYL) 25 MG TABS Take 25 mg by mouth every 6 (six) hours as needed. Active hydrocodone-acet aminophen (NORCO) 5-325 MG TABS Take 1 tablet by mouth every 6 (six) hours as needed for up to 15 doses. 15 tablet 0 12/18/2014 Active Active Problems Problem Noted Date Diagnosed Date [facility] ALLOWED: Closed fracture of triquetral (cuneiform) bone of wrist RT 01/30/2015 Sprain of hand 01/30/2015 Closed fracture of carpal bone 12/20/2014 [facility] ALLOWED: Fracture of radial head, right, malini sed 12/20/2014 Family History Medical History Relation Name Comments Cancer Father Diabetes Mother Relation Name Status Comments Father Mother Social History Tobacco Use Types Packs/Day Years Used Date Smoking Tobacco: Never Alcohol Use Standard Drinks/Week Comments Yes 1 (1 standard drink = 0.6 oz pur e alcohol) Sex and Gender Information Value Date Recorded Sex Assigned at Not on file Legal Sex Male 3:57 AM EDT Gender Identity Not on file Sexual Orientation Not on file Last Filed Vital Signs Vital Sign Reading Time Taken Comments Blood Pressure 144/90 12/20/2014 2:05 PM EDT Pulse 67 12/20/2014 2:05 PM EDT Temperature 36.8 C (98.2 F) 12/18/2014 10:58 AM EDT Respiratory Rate 16 12/18/2014 12:19 PM EDT Oxygen Saturation 99% 12/18/2014 12:19 PM EDT Inhaled Oxygen Concentration - - Weight 100.7 kg (222 lb) 12/20/2014 2:05 PM EDT Height 180.3 cm (5' 11 ) 12/20/2014 2:05 PM EDT Body Mass Index 30.96 12/20/2014 2:05 PM EDT Plan of Treatment Health Maintenance Due Date Last Done Comments DTap,Tdap,and Td (1 - Tdap) 08/15/1982 Colonoscopy 08/15/2016 PSA YEARLY 08/15/2021 Pneumococcal 50+ (1 of 1 - PCV) 08/15/2021 Shingrix (#1) 08/15/2021 Influenza Vaccine (#1) 2025 RSV Vaccine (60+ or ) (1 - 1-dose 75+ series) 08/15/2046 HPV Aged Out No longer eligi ble based on patient's age to complete this topic Meningococcal conjugate panfilo nt 4 (MCV4) Aged Out No longer eligible b ased on patient's age to complete this topic RSV Immunization (<20 months) Aged Out No longer eligible based on patient's age to complete this topic Insurance DENISSE Fix[employer] 4 Kids ALL OTHERS NOT MEDICARE [facility] Care Teams Ball Sorter Relationship Specialty Start Date End Date Ale Garcia MD PCP - General Gastroenterology 12/18/14
--- OUTSIDE RECORDS SUMMARY | 2025-01-23 08:55 | XMS_ITS | Referral Summary ---
Author Organization [facility] 95 Care Team Providers Care Teacher Of The Deaf/Hard Of Hearing Name Role Phone Ale Garcia MD Primary Care Provider [phone] Allergies No known active allergies Medications diphenhydrAMINE (BENADRYL) 25 MG TABS Take 25 mg by mouth every 6 (six) hours as needed. Active hydrocodone-acet aminophen (NORCO) 5-325 MG TABS Take 1 tablet by mouth every 6 (six) hours as needed for up to 15 doses. 15 tablet 0 12/18/2014 Active Active Problems Problem Noted Date Diagnosed Date [facility] ALLOWED: Closed fracture of triquetral (cuneiform) bone of wrist RT 01/30/2015 Sprain of hand 01/30/2015 Closed fracture of carpal bone 12/20/2014 [facility] ALLOWED: Fracture of radial head, right, malini sed 12/20/2014 Social History Tobacco Use Types Packs/Day Years [...] 12/20/2014 2:05 PM EDT Plan of Treatment Not on file Insurance [id number] [facility] [address] [place] [id number] [employer] ALL OTHERS NOT MEDICARE [address] [facility] [address] [place] [id number] [facility] Care Teams Teacher Of The Deaf/Hard Of Hearing Relationship Specialty Start Date End Date Ale Garcia MD PCP - General Gastroenterology 12/18/14
--- OUTSIDE RECORDS SUMMARY | 2025-01-23 08:55 | XMS_ITS | Patient Health Record ---
[facility] 12[facility] [address] [place] [id number] Care Team Providers Care Photoresist Printer Name Role Phone Antoinette Baptiste Primary Care Provider Allergies No Known Allergies Results Component Value Reference Range Notes Lipid Profile Reviewed date:07/04/2024 09:01:22 AM Interpretation: Performing Lab: Notes/Report: CMP Reviewed date:07/04/2024 09:01:34 AM Interpretation: Performing Lab: Notes/Report: H-Lipid Panel Reviewed date:07/07/2024 01:47:33 PM Interpretation:chol 206, dldl 149, hdl 33, chol/hdl 6.2 Performing Lab: Notes/Report: Patient Fasting? Y TRIG 115 30-150 mg/dl CHOL 206 140-200 mg/dl DLDL 148.78 100-129 mg/dL VLDL 23 0-40 mg/dL HDL 33 40-60 mg/dl CHLHDL 6.2 1-3.5 H-CMP Reviewed date:07/07/2024 01:47:33 PM Interpretation:cl 108, gluc 128, alt 87 Performing Lab: Notes/Report: NA 138 136-145 mmol/L K 4.5 3.5-5.1 mmoL/L CL 108 98-107 mmol/L CO2 26 22.0-30.0 mmol/L GAP 8.5 5-15 mEq/L BUN 20 9-20 mg/dl CREATT 1.10 0.66-1.25 mg/dl GFRAA 85 >60 ML/MIN EGFR 70 >60 ml/min GLU 128 74-100 mg/dl CA 9.0 8.4-10.2 mg/dl BILIT 0.5 0.2-1.3 mg/dl AST 52 17-59 U/L ALT 87 12-78 U/L TP 6.3 6.3-8.2 g/dl ALB 4.0 3.5-5.0 g/dl GLOB 2.3 1.3-3.2 g/dL AGRATIO 1.7 1.1-1.8 ALP 89 38-126 U/L H-Glycohemoglobin A1C Reviewed date:07/07/2024 01:47:33 PM Interpretation:6.1 Performing Lab: Notes/Report: HGBA1C 6.1 4.0-6.0 % < 6% Non-Diabetic Level < 7% Controlled Diabetic Level > 8% Poorly Controlled Diabetic Level Medications Medication SIG (Take, Route, Frequency, Duration) Notes Start Date End Date Status buPROPion HCl ER (XL) 150 MG Take 1 tablet by mouth once daily; Duration: 90 Active guanFACINE HCl ER 2 MG 1 tab(s) orally o nce a day (in the morning); Duration: 30 Active Lisinopril 10 MG Take 1 tablet by shilo th once daily; Duration: 30 Active Venlafaxine HCl ER 150 MG Take 1 capsule by mouth once daily; Duration: 90 Active Immunizations Vaccine Route Administration Date Status Comme nts COVID 19 Moderna Unknown 08/01/2020 Administered COVID 19 Moderna Unknown 05/07/2021 Administered Fluzone PF Quad (6-35 months) Unknown 03/06/2017 Administered Fluzone Quad (6months&older) IM Intramuscular 05/07/2022 Administered Tetanus Tdap-Adacel (over 7yrs) IM Intramuscular 05/07/2022 Administered Problems Problem Type SNOMED Code ICD Code Onset Dates Problem Status W/U Status Risk Notes Problem Mixed anxiety and depressive disorder (401307633) Depression with anxiety (F41.8) Active confirmed Problem Mixed hyperlipidemia (280892513) Mixed hyperlipidemia (E78.2) Active confirmed Problem Chronic pain (25219729) Other chronic pain (G89.29) Active confirmed Problem Otitis externa of right ear (315069366856843 1) Other otitis externa, right ear (H60.8X1) Active confirmed Problem Pain of right knee region (finding) (354961635244408 ) Pain in right knee (M25.561) Active confirmed Problem Pain of left knee joint (finding) (005375369685979 ) Pain in left knee (M25.562) Active confirmed Problem Obese class II (968876109667960 ) BMI 35.0-35.9,adult (Z68.35) Active confirmed Problem Insomnia disorder related to another mental disorder (36917751) Psychophysiological insomnia (F51.04) Active confirmed Problem HBP - High blood pressure (75168260) HBP (high blood pressure) (I10) Active confirmed Problem Osteoarthritis of knee (672144058) Primary osteoarthritis of both knees (M17.0) Active confirmed Problem Hypersomnia (23239221) Hypersomnia (G47.10) Active confirmed Problem Dyslipidemia (482885300) Dyslipidemia (E78.5) Active confirmed Problem Exercise-induced asthma (75694737) Exercise-induced asthma (J45.990) Active confirmed Problem Dyslexia (03159006) Dyslexia (R48.0) Active confirmed Problem Excessive thirst (63515936) Excessive thirst (R63.1) Active confirmed Problem Prediabetes (095075735) Prediabetes (R73.03) Active confirmed Problem ADD - Attention deficit disorder without hyperactivity (21985748) ADD (attention deficit disorder) without hyperactivity (F98.8) Active confirmed Problem Allergic rhinitis (97281755) Allergic rhinitis, unspecified chronicity, unspecified seasonality, unspecified trigger (J30.9) Active confirmed Problem Amnesia (02312565) Memory changes (R41.3) Active confirmed Vital Signs Heart Rate 64 /min 07/07/2024 Blood pressure diastolic 90 mm Hg 07/07/2024 Height 71 in 07/07/2024 Blood pressure systolic 140 mm Hg 07/07/2024 Weight 250.8 lbs 07/07/2024 BMI 34.98 kg/m2 07/07/2024 Encounters Encounter Location Date Provider Diagnosis [facility] [address] [place] [id number] 04/07/2024 R Ambrosio Oliva HBP (high blood pressure) I10 ; Dyslipidemia E78.5 ; Prediabetes R73.03 ; BMI 35.0-35.9,adult Z68.35 and Screening for colon cancer Z12.11 [facility] [address] [facility] [address] [place], [place] [id number] 07/07/2024 R Ambrosio Oliva HBP (high blood pressure) I10 ; Dyslipidemia E78.5 ; Prediabetes R73.03 and BMI 35.0-35.9,adult Z68.35 Assessments Encounter Date Diagnosis (ICD Code) Assessment Notes Treatment Notes Treatment Clinical Notes Section Notes 04/07/2024 HBP (high blood pressure) (ICD-10 - I10) 04/07/2024 Dyslipidemia (ICD-10 - E78.5) He is provided a requisition to repeat his lab studies. Reinforced diet and weight loss. 07/07/2024 HBP (high blood pressure) (ICD-10 - I10) 07/07/2024 Dyslipidemia (ICD-10 - E78.5) He is provided a requisition to repeat his lab studies prior to next OV. Reinforced diet and weight loss. 07/07/2024 Prediabetes (ICD-10 - R73.03) 04/07/2024 Prediabetes (ICD-10 - R73.03) Check A1c 04/07/2024 BMI 35.0-35.9,adult (ICD-10 - Z68.35) 07/07/2024 BMI 35.0-35.9,adult (ICD-10 - Z68.35) 04/07/2024 Screening for colon cancer (ICD-10 - Z12.11) Plan Of Treatment Pending Test Test Name Order Date Glycohemoglobin (HbA1C) 04/07/2024 colonoscopy 04/07/2024 H-Lipid Panel 05/07/2022 H-CMP 05/07/2022 H-PSA 05/07/2022 Next Appt Details Provider Name:Antoinette Nguyen, 01/24/2025 09:30:00 AM, [address], [place], [place], [id number], Insurance Providers Payer Name Payer Address Payer Phone Subscriber Number Group Number Insured Name Patient Relationship to Insured Coverage Start Date Coverage End Date [employer]ISSE [employer] [address] [place] [address] [id number] LORIE YUN Self - patient is the insured Medical (General) History Medical History History ICD Code Allergic Rhinitis HBP HLP Prediabetes Surgical History Surgery Date(Month/Year) Hernia Repair Vasectomy Mole Removal- Dr. Strickland 11/22/2019 Hospitalization History Reason Date(Month/Year) Pneumonia- [facility] ER 05/2016
--- OUTSIDE RECORDS SUMMARY | 2025-01-23 08:57 | XMS_ITS | Clinical Summary ---
Author Organization [facility] Address [address] [place] [address] Care Team Providers Care Divisional Human Resources Director Name Role Phone Percy Sánchez MD Primary Care Provider Allergies No known active allergies Medications buPROPion XL (Wellbutrin XL) 150 MG 24 hr tablet Take 1 tablet (150 mg) by mouth daily. Active venlafaxine XR (Effexor-XR) 150 MG 24 hr capsule Take 1 capsule (150 mg) by mouth daily. Active lisinopril 10 MG tablet Take 1 tablet (10 mg) by mouth daily. Active meloxicam (Mobic) 15 MG tabletIndications:P rimary osteoarthritis of one knee, right Take 1 tablet (15 mg) by mouth daily. 30 tablet Active Social History Tobacco Use Types Packs/Day Years Used Date Smoking Tobacco: Never Assessed PHQ-2 Answer Date Recorded Patient Health Questionnaire-2 Score 0 07/14/2024 Sex and Gender Information Value Date Recorded Sex Assigned at Not on file Legal Sex Male 6:30 PM EDT Gender Identity Not on file Sexual Orientation Not on file Last Filed Vital Signs Vital Sign Reading Time Taken Comments Blood Pressure 130/87 07/14/2024 8:12 AM EDT Pulse - - Temperature - - Respiratory Rate - - Oxygen Saturation - - Inhaled Oxygen Concentration - - Weight 113 kg (250 lb) 07/14/2024 8:12 AM EDT Height 180.3 cm (5' 11 ) 07/14/2024 8:12 AM EDT Body Mass Index 34.87 07/14/2024 8:12 AM EDT Plan of Treatment Health Maintenance Due Date Last Done Comments [facility]-HIV Screening 1970 [facility]-Hepatitis C Screening 1970 [facility]-/Child/Adol SDOH Screenings 1970 [facility]- SDOH Screenings 08/15/1989 [facility]-Adult SDOH Screenings 08/15/1989 [facility]-DTaP,Tdap,and Td Vaccine s (1 - Tdap) 08/15/1990 [facility]-Hepatitis B Vaccines (1 of 3 - 19+ 3-dose series) 08/15/1990 CT Colonography 08/15/2016 Colonoscopy 08/15/2016 FIT-DNA 08/15/2016 FIT 08/15/2016 FOBT 08/15/2016 Sigmoidoscopy 08/15/2016 [facility]-Colorectal Cancer Screening 08/15/2016 [facility]-Pneumococcal Vaccine: 50 + Years (1 of 1 - PCV) 08/15/2021 [facility]-Zoster Vaccines (1 of 2) 08/15/2021 TZA-KWPIT-24 Vaccine ( - season) 2025 05/07/2021, 08/01/2020, 07/04/2020 [facility]-Influenza Vaccine (#1) 2025 03/06/2017 [facility]-Depression Screening 07/14/2025 07/14/2024 [facility]-Obesity Intervention Completed 07/14/2024 HPV Vaccines Aged Out No longer eligi ble based on patient's age to complete this topic [facility]-HIB Vaccines Aged Out No longer e ligible based on patient's age to complete this topic [facility]-Hepatitis A Vaccines Aged Out No longer eligible based on patient's age to complete this topic [facility]-IPV Vaccines Aged Out No longer e ligible based on patient's age to complete this topic [facility]-Rotavirus Vaccines Aged Out No lo nger eligible based on patient's age to complete [place] [address] DENISSE Care Teams Divisional Human Resources Director Relationship Specialty Start Date End Date Percy Sánchez MD [address] [facility] [place] [address] PCP - General 09/14/20
[2025-01-23 10:00] LABS: Hemoglobin A1C 6.0 % (4.0-6.0)
[2025-01-23 10:11] LABS: Albumin Level 4.2 g/dl (3.5-5.0)
[2025-01-23 10:12] LABS: Chloride 104 mmol/L (98-107); Potassium 4.6 mmoL/L (3.5-5.1); Sodium 139 mmol/L (136-145)
[2025-01-23 10:14] LABS: Alanine Aminotransferase 47 U/L (12-78); Aspartate Amino Transferase 39 U/L (17-59); Blood Urea Nitrogen 20 mg/dl (9-20); Creatinine,Serum 1.20 mg/dl (0.66-1.25); Estimated Glomerular Filt Rate 63 ml/min (>60); GFR (African American) 77 ML/MIN (>60)
[2025-01-23 10:15] LABS: Albumin/Globulin Ratio 1.6 (1.1-1.8); Alkaline Phosphatase 84 U/L (38-126); Anion Gap 13.6 mEq/L (5-15); Bilirubin,Total 0.7 mg/dl (0.2-1.3); Calcium 9.3 mg/dl (8.4-10.2); Carbon Dioxide 26 mmol/L (22.0-30.0); Cholesterol 232 mg/dl (140-200); Globulin 2.6 g/dL (1.3-3.2); Glucose 116 mg/dl (74-100); HDL Cholesterol 33 mg/dl (40-60); Total Protein,Serum 6.8 g/dl (6.3-8.2); Triglycerides 161 mg/dl (30-150)
== END 2025-01-23 23:59 | disposition home or self-care (01) ==
LOC: LAB 08:31
PROVIDERS: PCP Family Medicine; Visit Provider Family Medicine
DX: E78.5 Hyperlipidemia, unspecified (principal); I10 Essential (primary) hypertension; R73.03 Prediabetes
CPT/HCPCS: 36415; 80053; 80061; 83036